=== PATIENT | male | born 1955 | race Caucasian/White ===

== ENCOUNTER 2021-05-03 05:47 | Observation (INO) | payer OTHER ==
[~2021-05-03] VITALS: Ht 172.7 cm; Wt 82.0 kg
--- NOTE | 2021-05-03 07:58 | NUR ---
BRANCH CREDIT COUNSELOR NOTE: PT ROOMED TO 18 AT THIS TIME.
--- NOTE | 2021-05-03 08:10 | NUR ---
PT BIB [facility] WITH NEAR SYNCOPAL EVENT AT HOME. PT REPORTS STARTING TO FEEL DIZZY LAST NIGHT WITH WORSENING SYMPTOMS. PT WITH HISTORY OF [facility] WITH SYNCOPE. PER EMS, PT VSS EN ROUTE WITH FSBS OF 166. PIV ACCESS ESTABLISHED BY EMS AND PT GIVEN 4MG OF IV ZOFRAN EN ROUTE TO [facility] ED. UPON ARRIVAL TO [facility] ED, PT ATTACHED TO VS MONITORS. VSS AT THIS TIME. PT NEGATIVE FOR STROKE SCALE PERFORMED BY THIS RN. PT PLACED ON 2L O2 NC. DR TOSCANO AT BS. PT EDUCATED ON ER PROCESS AND POC AND VERBALIZES UNDERSTANDING. PT HAS CALL LIGHT WITHIN REACH AND DENIES ANY NEEDS AT THIS TIME. PT WITH FAMILY AT BS.
[2021-05-03] MEDS ORDERED: MECLIZINE 25 MG TABLET PO PRN ×2 (08:30→15:30)
--- NOTE | 2021-05-03 08:34 | NUR ---
LAB AT BS WITH PT AT THIS TIME.
[2021-05-03 08:44] LABS: BASOPHILS % (AUTO) 1 % (0-1); EOSINOPHILS % (AUTO) 1 % (1-7); LYMPHOCYTES % (AUTO) 14 % (22-44); MEAN CORPUSCULAR HEMOGLOBIN 31.1 pg (27.5-34.5); MEAN CORPUSCULAR HGB CONC 34.1 g/dL (33.2-36.2); MEAN PLATELET VOLUME 7.7 fL (7.4-10.4); MONOCYTES % (AUTO) 6 % (2-9); NEUTROPHILS % (AUTO) 79 % (42-75); PLATELET COUNT 194 x10^3/uL (130-400); RED BLOOD COUNT 5.05 x10^6/uL (4.38-5.82); RED CELL DISTRIBUTION WIDTH 13.9 % (9.4-14.8)
[2021-05-03 08:54] LABS: ALBUMIN 3.3 g/dL (3.4-5.0); ANION GAP 3 mmol/L (5-15); CALCIUM 8.4 mg/dL (8.5-10.1); CHLORIDE 107 mmol/L (98-107); CREATININE 0.75 mg/dL (0.7-1.3)
[2021-05-03] MEDS ORDERED: MECLIZINE CHEWABLE 25 MG TAB ONE (09:00)
--- NOTE | 2021-05-03 09:04 | NUR ---
REPORT OF PT TO LIVAN QUIROZ. ALL QUESTIONS ANSWERED.
--- NOTE | 2021-05-03 09:05 | NUR ---
PT MEDICATED PER MAR.
--- NOTE | 2021-05-03 09:13 | NUR ---
RECEIVED REPORT FROM LIVAN LOZANO. PT RESTING ON [employer]. SHERRI. MONITORS APPLIED. VSS.
--- NOTE | 2021-05-03 10:43 | NUR ---
PT SMOKES CIGARETTES AND NOTED TO BE 85% RA. PLACED AGAIN ON 2L NC. ERP NOTIFIED.
--- NOTE | 2021-05-03 10:44 | NUR ---
PT UP AND AMBULATORY W/ SHUFFLING GAIT. STATES HE FEELS DIZZY 6/10 AND REQUIRES ASSISTANCE PT SHUFFLES LEFT OR RIGHT.
[2021-05-03] MEDS ORDERED: ALBUTEROL/IPRATROPIUM 2.5MG/0.5MG, 3 ML NPPB ONE (11:00)
[2021-05-03] MEDS ORDERED: ALBUTEROL/IPRATROPIUM 2.5MG/0.5MG, 3 ML ONE (11:30)
--- NOTE | 2021-05-03 11:39 | NUR ---
PT RESTING ON TRI[place]. [place]. VSS. BREATHING TX INITIATED.
--- NOTE | 2021-05-03 12:22 | NUR ---
PT O2 SATS DECREASED TO 80% RA AFTER BREATHING TX. WHEN SLEEPING PT DESATED TO THE 70'S. PT PLACED ON 2L NC AND IS NOW SATING 94%. ERP DR. TOSCANO NOTIFIED.
[2021-05-03] MEDS ORDERED: methylPREDNISolone SOD SUCC 125 MG/2 ML IVPush ONE (12:30)
[2021-05-03] MEDS ORDERED: methylPREDNISolone SOD SUCC 125 MG/2 ML ONE (12:31)
--- NOTE | 2021-05-03 13:35 | NUR ---
PT RESTING ON GURNEY. NADN. [place].
[2021-05-03] MEDS ORDERED: ONDANSETRON ODT 4 MG PO PRN (14:00)
[2021-05-03] MEDS ORDERED: DIPHENHYDRAMINE 25 MG CAPSULE PO PRN (14:00)
[2021-05-03] MEDS ORDERED: ENOXAPARIN 40 MG/0.4 ML SQ SCH (14:00)
[2021-05-03] MEDS ORDERED: ENALAPRILAT 1.25 MG/ML, 2ML IVPush PRN (14:00)
[2021-05-03] MEDS ORDERED: ONDANSETRON 2MG/ML, 2ML IVPush PRN (14:00)
[2021-05-03] MEDS ORDERED: GUAIFENESIN/DM 200-20MG, 10ML UDC PO PRN (14:00)
[2021-05-03] MEDS ORDERED: ACETAMINOPHEN 325 MG TABLET PO PRN (14:00)
--- NOTE | 2021-05-03 14:08 | NUR ---
REPORT GIVEN TO JESSICA MORALES RN. ALL QUESTIONS ANSWERED. AWAITING PT TRANSPORT.
[2021-05-03 15:05] VITALS: BP 117/67
[2021-05-03 18:13] VITALS: BP 122/70
[2021-05-03] MEDS: methylPREDNISolone SOD SUCC 40 MG/ML IVPush SCH (18:45)
[2021-05-03] MEDS: FAMOTIDINE 20 MG TABLET PO SCH (21:17)
[2021-05-03 22:01] VITALS: BP 129/75
[2021-05-04 00:28] VITALS: BP 121/74
[2021-05-04] MEDS: methylPREDNISolone SOD SUCC 40 MG/ML IVPush SCH ×2 (00:39→06:07)
[2021-05-04 06:35] LABS: CHLORIDE 104 mmol/L (98-107)
[2021-05-04 06:43] LABS: ANION GAP 4 mmol/L (5-15); CALCIUM 9.5 mg/dL (8.5-10.1); CREATININE 0.67 mg/dL (0.7-1.3)
[2021-05-04 06:55] LABS: BASOPHILS % (AUTO) 0 % (0-1); EOSINOPHILS % (AUTO) 0 % (1-7); LYMPHOCYTES % (AUTO) 5 % (22-44); MEAN CORPUSCULAR HEMOGLOBIN 30.9 pg (27.5-34.5); MEAN CORPUSCULAR HGB CONC 33.7 g/dL (33.2-36.2); MEAN PLATELET VOLUME 8.2 fL (7.4-10.4); MONOCYTES % (AUTO) 1 % (2-9); NEUTROPHILS % (AUTO) 94 % (42-75); PLATELET COUNT 209 x10^3/uL (130-400); RED BLOOD COUNT 5.17 x10^6/uL (4.38-5.82); RED CELL DISTRIBUTION WIDTH 13.7 % (9.4-14.8)
[2021-05-04 07:58] VITALS: BP 126/69
[2021-05-04] MEDS ORDERED: METH4TAB6 PO ×3 (08:35→13:32)
[2021-05-04] MEDS ORDERED: MECL-101 PO ×3 (08:35→13:32)
[2021-05-04] MEDS ORDERED: ALBU18HF PO ×3 (08:38→13:32)
[2021-05-04] MEDS: FAMOTIDINE 20 MG TABLET PO SCH (08:39)
== END 2021-05-04 11:00 | disposition home or self-care (01) ==
LOC: ED 13:25 → SUATTDRO 13:31 → EDIP 13:39 → INTOOBSV 13:39 → 3N 14:33
PROVIDERS: ADMIT Internal Medicine; ATTEND Hospitalist
DX: R42 Dizziness and giddiness (principal); J44.1 Chronic obstructive pulmonary disease with (acute) exacerbation; J96.90 Respiratory failure, unspecified, unspecified whether with hypoxia or hypercapnia; I10 Essential (primary) hypertension; I25.10 Atherosclerotic heart disease of native coronary artery without angina pectoris; I25.2 Old myocardial infarction; F17.200 Nicotine dependence, unspecified, uncomplicated; Z79.899 Other long term (current) drug therapy
CPT/HCPCS: 36415; 70450; 71045; 80048; 82040; 85025; 93005; 96372; 96374; 96376; 99285; G0378; J1650; J2920; J2930